=== PATIENT | male | born 1965 | race Caucasian/White ===

== ENCOUNTER → 2022-07-16 | Outpatient (CLI) | payer MEDICARE, BC ==
--- NOTE | 2022-07-16 15:37 | US ---
EXAMINATION TYPE: US venous doppler duplex LE LT DATE OF EXAM: 07/16/2022 2:49 PM COMPARISON: NONE CLINICAL INDICATION: Male, 56 years old with history of R10.32 LT GROIN PAIN; Pain left groin SIDE PERFORMED: Left TECHNIQUE: The lower extremity deep venous system is examined utilizing real time linear array sonog ny with graded compression, doppler sonography and color-flow sonography. VESSELS IMAGED: Common Femoral Vein Deep Femoral Vein Greater Saphenous Vein * Femoral Vein Popliteal Vein Small Saphenous Vein * Proximal Calf Veins (* superficial vessels) Left Leg: Negative for DVT, pt unable to tolerate compressions within groin Results called to Dr. Sorto at time of exam Grayscale, color doppler, spectral doppler imaging performed of the deep veins of the lower extremity . There is normal flow and vascular waveforms. IMPRESSION: No ultrasound evidence for acute DVT in the left lower extremity.
--- NOTE | 2022-07-16 17:43 | US ---
EXAMINATION TYPE: US scrotum with doppler. TECHNIQUE: Grayscale and color Doppler Duplex imaging performed of the scrotum. DATE OF EXAM: 07/16/2022 COMPARISON: NONE CLINICAL INDICATION: Male, 56 years old with history of R10.32 LT GROIN PAIN; Left groin pain FINDINGS: EXAM MEASUREMENTS: TESTICLES: Right Testicle: 3.5 x 2.7 x 3.3 cm Left Testicle: 3.8 x 2.5 x 3.5 cm EPIDIDYMIS HEAD: Right Epididymis: 1.2 cm Left Epididymis: 1.5 cm Doppler performed to assess for testicular vascularity; good bilateral color flow and waveforms are s een. There is no evidence of testicular torsion. Presence of hydroceles: Small amount of fluid bilaterally Presence of varicoceles: No Mild bilateral scrotal skin thickening. Left groin visualized, with valsalva maneuvers. Patient unable to tolerate probe pressure to fully evaluate. We note a lymph node within the left groin= 1.4 x 0.9 cm with a 0.3cm cortex. Limited evalu ation shows no other abnormality Results called to Dr. Sorto at time of exam IMPRESSION: 1. No sonographic evidence for testicular torsion or epididymoorchitis. 2. Small bilateral hydroceles. 3. Nonspecific scrotal skin thickening/edema. 4. Patient had difficulty tolerating transducer pressure in the left groin region which limits its ev aluation. We note a nonenlarged lymph node here.
== END | disposition home or self-care (01) ==
LOC: RADUSWWP 13:58
PROVIDERS: ATTEND Family Medicine
DX: N43.3 Hydrocele, unspecified (principal); R23.4 Changes in skin texture
CPT/HCPCS: 76870; 93975

== ENCOUNTER → 2023-02-17 | Outpatient (CLI) | payer MEDICARE, BC ==
[2023-02-17 16:26] LABS: INR 0.9 (<1.2); Partial Thromboplastin Time 25.8 sec (22.0-30.0); Prothrombin Time 10.4 sec (10.0-12.5)
[2023-02-17 18:21] LABS: Basophils # (A) 0.05 X 10*3/uL (0.00-0.10); Basophils % (A) 0.8 %; Eosinophils # (A) 0.06 X 10*3/uL (0.04-0.35); HCT 43.4 % (39.6-50.0); HGB 14.5 g/dL (13.0-17.0); Lymphocytes # (A) 2.08 X 10*3/uL (0.90-5.00); Lymphocytes % (A) 34.4 %; MCH 29.1 pg (27.0-32.0); MCHC 33.4 g/dL (32.0-37.0); Mean Platelet Volume 10.5 FL (9.5-12.2); Monocytes # (A) 0.54 X 10*3/uL (0.20-1.00); Monocytes % (A) 8.9 %; NRBC Per 100 WBC 0 X 10*3/uL (0.00-0.01); Neutrophils # (A) 3.29 X 10*3/uL (1.80-7.70); Neutrophils % (A) 54.6 %; Platelet Count 245 X 10*3/uL (140-440); RBC 4.99 X 10*6/uL (4.40-5.60); RDW 13.2 % (11.5-14.5); WBC 6.04 X 10*3/uL (4.50-10.00)
[2023-02-17 18:33] LABS: BUN/Creat Ratio 28.88 Ratio (12.00-20.00); Blood Urea Nitrogen 23.1 mg/dL (9.0-27.0); Calcium 9.8 mg/dL (8.7-10.3); Carbon Dioxide 25.6 mmol/L (21.6-31.8); Chloride 105 mmol/L (96-109); Glucose 99 mg/dL (70-110); Potassium 3.6 mmol/L (3.5-5.5); Sodium 143 mmol/L (135-145)
== END | disposition home or self-care (01) ==
LOC: LABWHC1 14:16
PROVIDERS: ATTEND Orthopaedic Surgery
DX: M16.12 Unilateral primary osteoarthritis, left hip (principal)
CPT/HCPCS: 36415; 80048; 82040; 85025; 85610; 85730; 87070